=== PATIENT | female | born 1995 | race Hispanic/Latino ===

== ENCOUNTER 2019-07-26 08:08 | Emergency (ER) | payer SELFPAY ==
--- NOTE | 2019-07-26 09:42 | ER ---
Nurse's Notes [facility] Name: Brenda Rico Age: 24 yrs Sex: Female : 1995 Arrival Date: 07/26/2019 Time: 08:12 Bed 15 Private MD: Diagnosis: Pelvic and perineal pain Presentation: 07/26 09:19 Presenting complaint: Patient states: Pelvic pain w/ painful intercourse x 4 days, also ph reports constipation x 3 days, denies N/V, also denies fever or urinary symptoms. Transition of care: patient was not received from another setting of care. Onset of symptoms was July 26, 2019. Risk Assessment: Do you want to hurt yourself or someone else? Patient reports no desire to harm self or others. Initial Sepsis Screen: Does the patient meet any 2 criteria? No. Patient's initial sepsis screen is negative. Does the patient have a suspected source of infection? No. Patient's initial sepsis screen is negative. Care prior to arrival: None. 09:19 Method Of Arrival: Ambulatory ph 09:19 Acuity: CONNOR 3 ph Triage Assessment: 09:22 General: Appears. ph Historical: - Allergies: 09:21 No Known Allergies; ph - Home Meds: 09:21 None [Active]; ph - PMHx: 09:21 None; ph - PSHx: 09:21 ; ph - Immunization history:: Adult Immunizations unknown. - Social history:: Smoking status: Patient uses tobacco products, denies chronic smoking, but will smoke occasionally. - Ebola Screening: : No symptoms or risks identified at this time. - Family history:: not pertinent. Screenin:22 Abuse screen: Denies threats or abuse. Denies injuries from another. Nutritional ph screening: No deficits noted. Tuberculosis screening: No symptoms or risk factors identified. Fall Risk None identified. Assessment: 09:30 General: Appears in no apparent distress. comfortable, Behavior is calm, cooperative, ph appropriate for age, Smells of Reports Denies fever. Pain: Complains of pain in suprapubic area, right lower quadrant and left lower quadrant Pain currently is 6 out of 10 on a pain scale. Quality of pain is described as aching, radiating, Pain began 2-3 days ago. Is continuous. Neuro: Level of Consciousness is awake, alert, obeys commands, Oriented to person, place, time, situation. Respiratory: Respiratory effort is even, unlabored, Respiratory pattern is symmetrical. : Reports pain in suprapubic area painful intercourse Denies burning with urination, Patient is sexually active. Derm: No deficits noted. Vital Signs: 09:20 BP 115 / 70; Pulse 74; Resp 18; Temp 98.0; Pulse Ox 100% on R/A; Weight 86.18 kg; ph Height 5 ft. 4 in. (162.56 cm); Pain 6/10; 09:20 Body Mass Index 32.61 (86.18 kg, 162.56 cm) ph ED Course: 08:12 Patient arrived in ED. as 09:13 Edgardo Baird MD is Attending Physician. manuela 09:18 Padmini Manriquez, RN is Primary Nurse. ph 09:20 Triage completed. ph 09:21 Arm band placed on Patient placed in an exam room, on a stretcher. ph 09:30 Patient has correct armband on for positive identification. Bed in low position. Call ph light in reach. Side rails up X 1. Door closed. Noise minimized. Warm blanket given. 09:41 Thomas Felipe MD is Referral Physician. manuela 11:00 No provider procedures requiring assistance completed. Patient did not have IV access ph during this emergency room visit. Administered Medications: 10:34 Drug: Rocephin (cefTRIAXone) 1 grams Route: IM; Site: right gluteus; ph 11:00 Follow up: Response: No adverse reaction ph 10:34 Drug: Flagyl 2 grams Route: PO; ph 11:00 Follow up: Response: No adverse reaction ph 10:35 Drug: Zithromax 1 grams Route: PO; ph 11:00 Follow up: Response: No adverse reaction ph Outcome: 09:42 Discharge ordered by . manuela 11:02 Patient left the ED. ph 11:02 Discharged to home ambulatory. ph 11:02 Condition: good 11:02 Discharge instructions given to patient, Instructed on discharge instructions, follow up and referral plans. medication usage, Demonstrated understanding of instructions, follow-up care, medications, Prescriptions given X 1. Signatures: Edgardo Baird MD MD cha Martinez, Amelia as Padmini Manriquez, SAVANA RN ph
--- NOTE | 2019-07-26 09:42 | EDPHYS ---
Physician Documentation [facility] Name: Brenda Rico Age: 24 yrs Sex: Female : 1995 Arrival Date: 07/26/2019 Time: 08:12 Bed 15 Private MD: ED Physician Edgardo Baird HPI: 07/26 09:37 This 24 yrs old Female presents to ER via Ambulatory with complaints of Pelvic manuela Pain. 09:37 The patient presents with a possible exposure to a sexually transmitted disease, manuela vaginal discharge. Onset: The symptoms/episode began/occurred 2 day(s) ago. Historical: - Allergies: 09:21 No Known Allergies; ph - Home Meds: 09:21 None [Active]; ph - PMHx: 09:21 None; ph - PSHx: 09:21 ; ph - Immunization history:: Adult Immunizations unknown. - Social history:: Smoking status: Patient uses tobacco products, denies chronic smoking, but will smoke occasionally. - Ebola Screening: : No symptoms or risks identified at this time. - Family history:: not pertinent. ROS: 09:37 Constitutional: Negative for fever, chills, and weight loss, Eyes: Negative for injury, manuela pain, redness, and discharge, ENT: Negative for injury, pain, and discharge, Neck: Negative for injury, pain, and swelling, Cardiovascular: Negative for chest pain, palpitations, and edema, Respiratory: Negative for shortness of breath, cough, wheezing, and pleuritic chest pain, Abdomen/GI: Negative for abdominal pain, nausea, vomiting, diarrhea, and constipation, Back: Negative for injury and pain, MS/Extremity: Negative for injury and deformity, Skin: Negative for injury, rash, and discoloration, Neuro: Negative for headache, weakness, numbness, tingling, and seizure, Psych: Negative for depression, anxiety, suicide ideation, homicidal ideation, and hallucinations, Allergy/Immunology: Negative for hives, rash, and allergies, Endocrine: Negative for neck swelling, polydipsia, polyuria, polyphagia, and marked weight changes, Hematologic/Lymphatic: Negative for swollen nodes, abnormal bleeding, and unusual bruising. 09:37 : Positive for vaginal discharge, vaginal itching. Exam: 09:37 Constitutional: This is a well developed, well nourished patient who is awake, alert, manuela and in no acute distress. Head/Face: Normocephalic, atraumatic. Eyes: Pupils equal round and reactive to light, extra-ocular motions intact. Lids and lashes normal. Conjunctiva and sclera are non-icteric and not injected. Cornea within normal limits. Periorbital areas with no swelling, redness, or edema. ENT: Nares patent. No nasal discharge, no septal abnormalities noted. Tympanic membranes are normal and external auditory canals are clear. Oropharynx with no redness, swelling, or masses, exudates, or evidence of obstruction, uvula midline. Mucous membranes moist. Neck: Trachea midline, no thyromegaly or masses palpated, and no cervical lymphadenopathy. Supple, full range of motion without nuchal rigidity, or vertebral point tenderness. No Meningismus. Chest/axilla: Normal chest wall appearance and motion. Nontender with no deformity. No lesions are appreciated. Cardiovascular: Regular rate and rhythm with a normal S1 and S2. No gallops, murmurs, or rubs. Normal PMI, no JVD. No pulse deficits. Respiratory: Lungs have equal breath sounds bilaterally, clear to auscultation and percussion. No rales, rhonchi or wheezes noted. No increased work of breathing, no retractions or nasal flaring. Back: No spinal tenderness. No costovertebral tenderness. Full range of motion. Female : Normal external genitalia. Skin: Warm, dry with normal turgor. Normal color with no rashes, no lesions, and no evidence of cellulitis. MS/ Extremity: Pulses equal, no cyanosis. Neurovascular intact. Full, normal range of motion. Neuro: Awake and alert, GCS 15, oriented to person, place, time, and situation. Cranial nerves II-XII grossly intact. Motor strength 5/5 in all extremities. Sensory grossly intact. Cerebellar exam normal. Normal gait. Psych: Awake, alert, with orientation to person, place and time. Behavior, mood, and affect are within normal limits. 09:37 Abdomen/GI: Inspection: abdomen appears normal, Bowel sounds: normal, Palpation: abdomen is soft and non-tender, Liver: no appreciated palpable abnormalities, Hernia: not appreciated. Vital Signs: 09:20 BP 115 / 70; Pulse 74; Resp 18; Temp 98.0; Pulse Ox 100% on R/A; Weight 86.18 kg; ph Height 5 ft. 4 in. (162.56 cm); Pain 6/10; 09:20 Body Mass Index 32.61 (86.18 kg, 162.56 cm) ph MDM: 09:13 Patient medically screened. [facility] 07/26 09:15 Order name: Urine Culture [facility] 07/26 09:41 Order name: Urine Dipstick--Ancillary (enter results) 07/26 09:41 Order name: Urine --Ancillary (enter results) 07/26 09:15 Order name: Urine Dipstick-Ancillary (obtain specimen); Complete Time: 10:12 [facility] 07/26 09:15 Order name: Urine Test (obtain specimen); Complete Time: 10:10 [facility] Administered Medications: 10:34 Drug: Rocephin (cefTRIAXone) 1 grams Route: IM; Site: right gluteus; ph 11:00 Follow up: Response: No adverse reaction ph 10:34 Drug: Flagyl 2 grams Route: PO; ph 11:00 Follow up: Response: No adverse reaction ph 10:35 Drug: Zithromax 1 grams Route: PO; ph 11:00 Follow up: Response: No adverse reaction ph Disposition: 07/26/19 09:42 Discharged to Home. Impression: Pelvic and perineal pain. - Condition is Stable. - Discharge Instructions: Abdominal Pain, Adult, Pelvic Pain, Female, Pelvic Pain, Female, [id number]. - Prescriptions for Doxycycline Hyclate 100 mg Oral Tablet - take 1 tablet by ORAL route every 12 hours; 20 tablet. - Medication Reconciliation Form, Thank You Letter, Antibiotic Education, Prescription Opioid Use form. - Follow up: Private Physician; When: 2 - 3 days; Reason: Recheck today's complaints, Continuance of care, Re-evaluation by your physician. Follow up: Thomas Felipe MD; When: 2 - 3 days; Reason: Recheck today's complaints, Re-evaluation by your physician. - Problem is new. - Symptoms have improved. Signatures: Dispatcher [employer] EDEdgardo Aviles MD MD cha Hall, Patricia RN RN ph Corrections: (The following items were deleted from the chart) 11:02 09:42 07/26/2019 09:42 Discharged to Home. Impression: Pelvic and perineal pain. ph Condition is Stable. Forms are Medication Reconciliation Form, Thank You Letter, Antibiotic Education, Prescription Opioid Use. Follow up: Private Physician; When: 2 - 3 days; Reason: Recheck today's complaints, Continuance of care, Re-evaluation by your physician. Follow up: Thomas Felipe; When: 2 - 3 days; Reason: Recheck today's complaints, Re-evaluation by your physician. Problem is new. Symptoms have improved. manuela
[2019-07-26] MEDS ORDERED: AZITHROMYCIN 250 MG TAB ONE (10:19)
[2019-07-26] MEDS ORDERED: WATER FOR INJ,STERILE 10 ML ONE (10:19)
[2019-07-26] MEDS ORDERED: metroNIDAZOLE 500 MG TABLET ONE (10:19)
[2019-07-26] MEDS ORDERED: CEFTRIAXONE 1000 MG/VIAL ONE (10:19)
[2019-07-26 10:41] LABS: Urine Blood NEGATIVE (NEG); Urine Glucose NEGATIVE (NEG); Urine Protein NEGATIVE (NEG); Urine Specific Gravity 1.015 (1.005-1.030); Urine pH 5.5 (5.0-7.0)
[2019-07-26 11:39] VITALS: BP 115/70; TEMP 98; O2SAT 100
== END 2019-07-26 11:02 | disposition home or self-care (01) ==
LOC: ER 08:08
DX: R10.2 Pelvic and perineal pain (principal); Z72.0 Tobacco use
CPT/HCPCS: 81003; 81025; 87086; 87088; 96372; 99283

== ENCOUNTER 2020-03-30 21:05 | Emergency (ER) | payer SELFPAY ==
[2020-03-30 22:27] LABS: Absolute Lymphocytes (CBC) 3.1 K/uL (0.7-4.9); Basophils % 0.8 % (0-1.3); Hematocrit 39.6 % (36.0-45.0); Lymphocytes % 28.4 % (15.3-44.8); MPV 9.4 fL (7.6-11.3); Protime INR 1.06
[2020-03-30] MEDS ORDERED: KETOROLAC 30 MG/ML INJ ONE (22:33)
[2020-03-30 22:53] LABS: ALT/SGPT 17 U/L (12-78); AST/SGOT 15 U/L (15-37); Albumin 3.9 g/dL (3.4-5.0); Alkaline Phosphatase 85 U/L (45-117); BUN Blood Urea Nitrogen 10 mg/dL (7-18); Bicarbonate 24 mmol/L (21-32); Bilirubin Direct 0.1 mg/dL (0-0.2); Bilirubin Total 0.2 mg/dL (0.2-1.0); Glucose Level 87 mg/dL (74-106); Magnesium 2.1 mg/dL (1.8-2.4); NT PRO-BNP 44 pg/mL (<125); Potassium 3.6 mmol/L (3.5-5.1); Protein, Total 7.8 g/dL (6.4-8.2); Sodium Level 139 mmol/L (136-145); Troponin (Emerg Dept Use Only) < 0.02 ng/mL (0.0-0.045)
--- NOTE | 2020-03-30 22:54 | RAD REPORT ---
EXAM DESCRIPTION: Bryan Single View03/30/2020 10:38 pm CLINICAL HISTORY: Chest pain COMPARISON: none FINDINGS: The lungs appear clear of acute infiltrate. The heart is normal size IMPRESSION: No acute abnormalities displayed
[2020-03-30 23:42] LABS: Urine Blood NEGATIVE (NEG); Urine Glucose NEGATIVE (NEG); Urine Protein NEGATIVE (NEG); Urine Specific Gravity 1.015 (1.005-1.030)
--- NOTE | 2020-03-30 23:44 | EDPHYS ---
Physician Documentation [facility] Name: Brenda Rico Age: 25 yrs Sex: Female : 1995 Arrival Date: 03/30/2020 Time: 21:07 Bed 20 Private MD: ED Physician Geronimo Leigh HPI: 03/30 22:10 This 25 yrs old Female presents to ER via Ambulatory with complaints of Chest cp Pain and Shortness of Breath. 22:10 The patient or guardian reports chest pain that is located primarily in the substernal cp area. The pain does not radiate. Associated signs and symptoms: Pertinent positives: dizziness, near-syncope, palpitations, shortness of breath, Pertinent negatives: abdominal pain, cough, diaphoresis, lower extremity pain, lower extremity swelling, syncope, vomiting, fever. The chest pain is described as a pressure. Duration: The patient or guardian reports multiple episodes, that wax and wane, started 3 days ago. 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 - Social history:: Smoking status: Patient/guardian denies using tobacco, but has a distant history of tobacco abuse. ROS: 22:15 Constitutional: Negative for body aches, chills, fever, poor PO intake. cp 22:15 Eyes: Negative for injury, pain, redness, and discharge. cp 22:15 ENT: Negative for ear pain, sore throat, difficulty swallowing, difficulty handling secretions. 22:15 Cardiovascular: Positive for chest pain, Negative for edema. 22:15 Respiratory: Positive for shortness of breath, Negative for cough, wheezing. 22:15 Abdomen/GI: Negative for abdominal pain, nausea, vomiting, and diarrhea. 22:15 Neuro: Positive for dizziness, near syncope, Negative for altered mental status, headache, syncope, weakness. 22:15 All other systems are negative. Exam: 21:30 ECG was reviewed by the Attending Physician. cp 22:20 Constitutional: The patient appears in no acute distress, alert, awake, cp non-diaphoretic, non-toxic, well developed, well nourished. 22:20 Head/Face: Normocephalic, atraumatic. cp 22:20 Eyes: Periorbital structures: appear normal, Conjunctiva: normal, no exudate, no injection, Sclera: no appreciated abnormality, Lids and lashes: appear normal, bilaterally. 22:20 ENT: External ear(s): are unremarkable, Nose: is normal, Mouth: is normal, Posterior pharynx: is normal, airway is patent. 22:20 Chest/axilla: Inspection: normal, Palpation: is normal, no crepitus, no tenderness. 22:20 Cardiovascular: Rate: normal, Rhythm: regular, Edema: is not appreciated, JVD: is not appreciated. 22:20 Respiratory: the patient does not display signs of respiratory distress, Respirations: normal, no use of accessory muscles, no retractions, labored breathing, is not present, Breath sounds: are clear throughout, no decreased breath sounds, no stridor, no wheezing. 22:20 Abdomen/GI: Inspection: abdomen appears normal, Palpation: abdomen is soft and non-tender, in all quadrants. 22:20 Back: pain, is absent, ROM is normal. 22:20 Musculoskeletal/extremity: DVT Exam: No signs of deep vein thrombosis. 22:20 Neuro: Orientation: to person, place \T\ time. Mentation: is normal. Vital Signs: 21:15 BP 148 / 79; Pulse 68; Resp 15 S; Temp 97.7(TE); Pulse Ox 100% on R/A; Weight 90.72 kg ca1 (R); Height 5 ft. 4 in. (162.56 cm) (R); Pain 6/10; 23:38 BP 140 / 70; Pulse 67; Resp 18; Pulse Ox 100% on R/A; mg2 21:15 Body Mass Index 34.33 (90.72 kg, 162.56 cm) ca1 MDM: 22:03 Patient medically screened. cp 22:45 Differential diagnosis: abnormal EKG, anxiety, chest wall pain, cholecystitis, cp Cholelithiasis myocarditis, peptic ulcer disease, pericarditis, pleurisy, pneumonia, pulmonary embolus. 23:43 Counseling: I had a detailed discussion with the patient and/or guardian regarding: the cp historical points, exam findings, and any diagnostic results supporting the discharge/admit diagnosis, lab results, radiology results, the need for outpatient follow up, a family practitioner, to return to the emergency department if symptoms worsen or persist or if there are any questions or concerns that arise at home. 23:43 Response to treatment: the patient's symptoms have markedly improved after treatment, cp and as a result, I will discharge patient. Special discussion: Based on the patient's history, exam, and Dx evaluation, there is no indication for emergent intervention or inpatient Tx. It is understood by the patient/guardian that if the Sx's persist or worsen they need to return immediately for re-evaluation. ED course: VSS. Pain improved with meds. Will discharge to home for continued monitoring. 23:55 Data reviewed: vital signs, nurses notes, lab test result(s), EKG, radiologic studies, cp plain films. 23:55 Test interpretation: by ED physician or midlevel provider: ECG. 03/30 22:05 Order name: Basic Metabolic Panel; Complete Time: 23:10 mg2 08 23:10 Interpretation: Reviewed. 03/30 22:05 Order name: CBC with Diff; Complete Time: 23:10 mg2 03/30 23:36 Interpretation: Reviewed. 03/30 22:05 Order name: LFT's; Complete Time: 23:10 mg2 /08 23:10 Interpretation: Normal except: GLOB 3.9; A/G 1.0. / 22:05 Order name: Magnesium; Complete Time: 23:10 mg2 /08 22:05 Order name: NT PRO-BNP; Complete Time: 23:10 mg2 /08 22:05 Order name: PT-INR; Complete Time: 23:10 mg2 /08 22:05 Order name: Troponin (emerg Dept Use Only); Complete Time: 23:10 mg2 /08 23:11 Interpretation: Reviewed. 03/30 22:05 Order name: XRAY Chest (1 view); Complete Time: 23:10 mg2 /08 22:34 Order name: D-Dimer; Complete Time: 23:10 EDMS 03/30 22:41 Order name: Urine Dipstick--Ancillary (enter results); Complete Time: 23:44 mt 03/30 23:45 Interpretation: Reviewed. 03/30 22:41 Order name: Urine --Ancillary (enter results); Complete Time: 23:44 mt 03/30 23:45 Interpretation: Reviewed. cp 03/30 21:19 Order name: EKG; Complete Time: 21:20 ca1 03/30 21:19 Order name: EKG - Nurse/Tech; Complete Time: 21:23 ca1 03/30 22:05 Order name: Cardiac monitoring; Complete Time: 22:40 mg2 08 22:05 Order name: IV Saline Lock; Complete Time: 22:40 mg2 08 22:05 Order name: Labs collected and sent; Complete Time: 22:40 mg2 08 22:05 Order name: O2 Per Protocol; Complete Time: 22:40 mg2 08 22:05 Order name: O2 Sat Monitoring; Complete Time: 22:40 mg2 08 22:08 Order name: Urine Dipstick-Ancillary (obtain specimen); Complete Time: 22:40 cp 08 22:08 Order name: Urine Test (obtain specimen); Complete Time: 22:40 cp EC:30 Rate is 84 beats/min. Rhythm is regular. RI interval is normal. QRS interval is normal. cp QT interval is normal. Interpreted by me. Reviewed by me. Administered Medications: 22:40 Drug: TORadol - Ketorolac 15 mg Route: IVP; Site: right antecubital; mg2 23:40 Follow up: Response: No adverse reaction mg2 23:11 CANCELLED (Physician Discretion): Albuterol 2.5 mg Inhalation once cp Disposition: 03/31 05:43 Co-signature as Attending Physician, Geronimo Leigh MD. [email or web address] Disposition: 03/30/20 23:43 Discharged to Home. Impression: Other chest pain, Shortness of breath. - Condition is Stable. - Discharge Instructions: Nonspecific Chest Pain, Shortness of Breath. - Prescriptions for Ibuprofen 800 mg Oral Tablet - take 1 tablet by ORAL route every 8 hours As needed take with food; 30 tablet. Albuterol Sulfate 90 mcg/actuation - inhale 1-2 puff by INHALATION route every 4-6 hours; 1 Inhaler. - Medication Reconciliation Form, Thank You Letter, Antibiotic Education, Prescription Opioid Use form. - Follow up: Private Physician; When: 2 - 3 days; Reason: Recheck today's complaints. - Problem is new. - Symptoms have improved. Signatures: Dispatcher [employer] EDMS Edgardo Desai PA PA cp Hector Jeronimo RN RN mg2 Adriane Mukherjee RN RN ca1 Geronimo Leigh MD MD [email or web address] Corrections: (The following items were deleted from the chart) 03/30 22:34 22:20 D-[id number] ordered. EDMS EDMS 23:11 23:11 Albuterol 2.5 mg Inhalation once ordered. cp cp 23:14 23:12 This 25 yrs old Female presents to ER via Ambulatory with complaints of cp Chest Pain and Shortness of Breath. cp 23:57 23:43 03/30/2020 23:43 Discharged to Home. Impression: Other chest pain; Shortness of mg2 breath. Condition is Stable. Forms are Medication Reconciliation Form, Thank You Letter, Antibiotic Education, Prescription Opioid Use. Follow up: Private Physician; When: 2 - 3 days; Reason: Recheck today's complaints. Problem is new. Symptoms have improved. cp
--- NOTE | 2020-03-30 23:44 | ER ---
Nurse's Notes [facility] Name: Brenda Rico Age: 25 yrs Sex: Female : 1995 Arrival Date: 03/30/2020 Time: 21:07 Bed 20 Private MD: Diagnosis: Other chest pain;Shortness of breath Presentation: 03/30 21:15 Chief complaint: Patient states: Chest pain, SOB, dizziness since 3 days ago. Denies ca1 cough and fever. States, "my phone monitors my HR and it says it goes up to 114-117. I feel dizzy too when my BP is high like I am having anxiety attacks". Coronavirus screen: Proceed with normal triage. Patient denies a cough. Patient denies shortness of breath or difficulty breathing. Patient denies measured and/or subjective temperature greater than 100.4F prior to today's visit. Patient denies travel on a cruise ship or to a country the [facility] currently lists as an affected area. Patient denies contact with known and/or suspected case of COVID-19. Ebola Screen: Patient negative for fever greater than or equal to 101.5 degrees Fahrenheit, and additional compatible Ebola Virus Disease symptoms Patient denies exposure to infectious person. Patient denies travel to an Ebola-affected area in the 21 days before illness onset. No symptoms or risks identified at this time. Initial Sepsis Screen: Does the patient meet any 2 criteria? No. Patient's initial sepsis screen is negative. Does the patient have a suspected source of infection? No. Patient's initial sepsis screen is negative. Risk Assessment: Do you want to hurt yourself or someone else? Patient reports no desire to harm self or others. Onset of symptoms was March 30, 2020. 21:15 Method Of Arrival: Ambulatory ca1 21:15 Acuity: CONNOR 3 ca1 MACHINE STITCHER: 21:18 LMP 03/06/2020 ca1 Historical: - Allergies: 21:18 No Known Allergies; ca1 - Home Meds: 21:18 None [Active]; ca1 - PMHx: 21:18 None; ca1 - PSHx: 21:18 None; ca1 - Immunization history:: Adult Immunizations up to date. - Social history:: Smoking status: Patient/guardian denies using tobacco, but has a distant history of tobacco abuse. Screenin:41 Abuse screen: Denies threats or abuse. Denies injuries from another. Nutritional mg2 screening: No deficits noted. Tuberculosis screening: No symptoms or risk factors identified. Fall Risk IV access (20 points). Assessment: 22:41 General: Appears in no apparent distress. comfortable, Behavior is calm, cooperative. mg2 Pain: Complains of pain in chest. Neuro: Level of Consciousness is awake, alert, obeys commands, Oriented to person, place, time, situation. Cardiovascular: Reports chest pain, palpitations, Capillary refill < 3 seconds Patient's skin is warm and dry. Respiratory: Airway is patent Respiratory effort is even, unlabored, Respiratory pattern is regular, symmetrical. GI: No signs and/or symptoms were reported involving the gastrointestinal system. : No signs and/or symptoms were reported regarding the genitourinary system. EENT: No signs and/or symptoms were reported regarding the EENT system. Derm: Skin is intact, is healthy with good turgor, Skin is pink, warm \\T\\ dry. normal. Musculoskeletal: Circulation, motion, and sensation intact. Capillary refill < 3 seconds. 23:56 Reassessment: Patient appears in no apparent distress at this time. Patient denies pain mg2 at this time. Patient states feeling better. Vital Signs: 21:15 BP 148 / 79; Pulse 68; Resp 15 S; Temp 97.7(TE); Pulse Ox 100% on R/A; Weight 90.72 kg ca1 (R); Height 5 ft. 4 in. (162.56 cm) (R); Pain 6/10; 23:38 BP 140 / 70; Pulse 67; Resp 18; Pulse Ox 100% on R/A; mg2 21:15 Body Mass Index 34.33 (90.72 kg, 162.56 cm) ca1 ED Course: 21:07 Patient arrived in ED. ds1 21:18 Triage completed. ca1 21:18 Arm band placed on right wrist. ca1 21:47 Edgardo Desai PA is PHCP. cp 21:47 Geronimo Leigh MD is Attending Physician. cp 21:49 Hector Jeronimo RN is Primary Nurse. mg2 22:00 Inserted saline lock: 20 gauge in right antecubital area, using aseptic technique. mg2 Blood collected. 22:38 XRAY Chest (1 view) In Process Unspecified. EDMS 22:41 No provider procedures requiring assistance completed. mg2 23:38 Patient has correct armband on for positive identification. cardiac monitor technician on. Pulse mg2 ox on. NIBP on. Door closed. Warm blanket given. 23:56 IV discontinued, intact, bleeding controlled, No redness/swelling at site. Pressure mg2 dressing applied. Administered Medications: 22:40 Drug: TORadol - Ketorolac 15 mg Route: IVP; Site: right antecubital; mg2 23:40 Follow up: Response: No adverse reaction mg2 23:11 CANCELLED (Physician Discretion): Albuterol 2.5 mg Inhalation once cp Outcome: 23:43 Discharge ordered by MD. cp 23:56 Discharged to home ambulatory. mg2 23:56 Condition: stable 23:56 Discharge instructions given to patient, Instructed on discharge instructions, follow up and referral plans. medication usage, Demonstrated understanding of instructions, follow-up care, medications, Prescriptions given X 2. 23:57 Patient left the ED. mg2 Signatures: Dispatcher [employer] [facility] Leola Connor ds1 Edgardo Desai PA PA cp Hector Jeronimo, SAVANA RN mg2 Adriane Mukherjee RN RN ca1
[2020-03-31 00:21] VITALS: TEMP 97.7; O2SAT 100
[2020-03-31 00:23] VITALS: BP 140/70
--- NOTE | 2020-03-31 06:35 | EKG ---
Test Date: 2020-03-30 Test Time: 21:21:58 Trailer Rental Clerk: SUSIE MEASUREMENT RESULTS: Intervals: Rate: 84 [place]: 186 QRSD: 82 QT: 378 QTc: 446 [place]: P: 77 [place]: 186 QRS: 85 T: 50 INTERPRETIVE STATEMENTS: Sinus rhythm with sinus arrhythmia with occasional premature ventricular complexes Otherwise normal ECG No previous ECG available for comparison Electronically Signed On 03-31-20 06:34:26 CDT by Win Morgan
== END 2020-03-30 23:57 | disposition home or self-care (01) ==
LOC: ER 21:05
DX: R06.02 Shortness of breath (principal)
CPT/HCPCS: 36415; 71045; 80048; 80076; 81003; 81025; 83735; 83880; 84484; 85025; 85379; 85610; 93005; 96374; 99284

== ENCOUNTER 2022-01-28 13:13 | Emergency (ER) | payer SELFPAY ==
--- NOTE | 2022-01-28 15:13 | ER ---
Nurse's Notes [facility] Name: Brenda Rico Age: 26 yrs Sex: Female : 1995 Arrival Date: 01/28/2022 Time: 13:15 Bed Waiting Private MD: Diagnosis: Presentation: 01/28 13:26 Chief complaint: Patient states: "[facility] ab2 pressure and told me it was high and they sent me here." Pt c/o headache and chest tightness. Coronavirus screen: Vaccine status: Patient reports receiving the 2nd dose of the covid vaccine. Client denies travel out of the [place] in the last 14 days. At this time, the client does not indicate any symptoms associated with coronavirus-19. Ebola Screen: Patient negative for fever greater than or equal to 101.5 degrees Fahrenheit, and additional compatible Ebola Virus Disease symptoms Patient denies exposure to infectious person. Patient denies travel to an Ebola-affected area in the 21 days before illness onset. No symptoms or risks identified at this time. Initial Sepsis Screen: Does the patient meet any 2 criteria? No. Patient's initial sepsis screen is negative. Does the patient have a suspected source of infection? No. Patient's initial sepsis screen is negative. Risk Assessment: Do you want to hurt yourself or someone else? Patient reports no desire to harm self or others. Onset of symptoms is unknown. 13:26 Method Of Arrival: Ambulatory ab2 13:26 Acuity: CONNOR 3 ab2 Triage Assessment: 13:28 General: Appears in no apparent distress. uncomfortable, Behavior is calm, cooperative, ab2 appropriate for age. Pain: Complains of pain in head Pain currently is 6 out of 10 on a pain scale. Neuro: Level of Consciousness is awake, alert, obeys commands, Oriented to person, place, time, situation, Appropriate for age Heel Reducer are equal bilaterally Moves all extremities. Gait is steady, Speech is normal, Facial symmetry appears normal. Neuro: Reports headache. Cardiovascular: Reports chest pain, Heart tones S1 S2 present. Respiratory: Airway is patent Respiratory effort is even, unlabored, Respiratory pattern is regular, symmetrical. GI: No deficits noted. No signs and/or symptoms were reported involving the gastrointestinal system. : No deficits noted. No signs and/or symptoms were reported regarding the genitourinary system. Historical: - Allergies: 13:25 No Known Allergies; ab2 - PMHx: 13:25 None; ab2 - PSHx: 13:25 None; ab2 - Immunization history:: Adult Immunizations up to date. - Social history:: Smoking status: Patient denies any tobacco usage or history of. Vital Signs: 13: BP 132 / 88; Pulse 82; Resp 17; Temp 98.6; Pulse Ox 99% on R/A; Weight 95.25 kg; Height ab2 5 ft. 5 in. (165.10 cm); Pain 6/10; 13:26 Body Mass Index 34.95 (95.25 kg, 165.10 cm) ab2 ED Course: 13:15 Patient arrived in ED. mr 13:26 Arm band placed on right wrist. ab2 13:28 Triage completed. ab2 13:29 Patient maintains SpO2 saturation greater than 95% on room air. ab2 Administered Medications: No medications were administered Outcome: 15:12 Patient left the ED. ab2 Signatures: vYonne Rodriguez mr McguireMartin ab2
[2022-01-28 17:26] VITALS: BP 132/88; TEMP 98.6; O2SAT 99
--- NOTE | 2022-01-31 09:45 | EKG ---
Test Date: 2022-01-28 Test Time: 13:30:59 Macerator Operator: NELA MEASUREMENT RESULTS: Intervals: Rate: 83 DC: 188 QRSD: 78 QT: 378 QTc: 444 [place]: P: 72 DC: 188 QRS: 82 T: 61 INTERPRETIVE STATEMENTS: Normal sinus rhythm Normal ECG Compared to ECG 03/30/2020 21:21:58 Sinus arrhythmia no longer present Ventricular premature complex(es) no longer present Electronically Signed On 01-31-22 09:36:29 CDT by Win Morgan
== END 2022-01-28 15:12 | disposition left against medical advice (07) ==
LOC: ER 13:13
DX: Z53.21 Procedure and treatment not carried out due to patient leaving prior to being seen by health care provider (principal)
CPT/HCPCS: 93005; 99283